=== PATIENT | male | born 1965 | race Two or more races ===

== ENCOUNTER 2018-01-06 00:57 | Emergency (ER) | payer MEDICAID ==
[~2018-01-06] VITALS: Ht 172.7 cm; Wt 79.4 kg
[2018-01-06] MEDS ORDERED: MORPHINE SULFATE 4 MG/1 ML DISP.SYRIN IM ONE (01:15)
[2018-01-06] MEDS ORDERED: MORPHINE SULFATE 4 MG/1 ML DISP.SYRIN ONE (01:15)
--- NOTE | 2018-01-06 01:18 | NUR ---
XRAY AT BEDSIDE.
--- NOTE | 2018-01-06 01:44 | NUR ---
Patient discharged to home in stable conditon. Written and verbal after care instructions given. Patient verbalizes understanding of instructions.
[2018-01-06 01:45] VITALS: BP 112/66
--- NOTE | 2018-01-06 02:12 | NUR ---
Patient discharged to home in stable conditon. Written and verbal after care instructions given. Patient verbalizes understanding of instructions. ALL BELONGINGS W/ PT. PT SLEF-AMBULATED WITHOUT DIFFICULTY.
== END 2018-01-06 02:13 | disposition home or self-care (01) ==
LOC: ER 01:04
DX: M54.6 Pain in thoracic spine (principal); M54.5 Low back pain
CPT/HCPCS: 72072; 72100; 96372; 99284; A4663; J2270